=== PATIENT | male | born 1960 | race Caucasian/White ===

== ENCOUNTER → 2018-01-04 | Outpatient (CLI) | payer OTHER ==
[~2018-01-04] MED LIST: CLARITIN10 MG; CRESTOR10 MG PO; FELODIPINE ER10 MG PO; LOSARTAN POTAS100 MG PO; PROZAC20 MG PO
[2018-01-04 09:45] LABS: ABSOLUTE BASOPHILS 0.1 thou/uL (0.0-0.2); ABSOLUTE EOSINOPHILS 0.1 thou/uL (0.0-0.7); ABSOLUTE MONOCYTES 0.5 thou/uL (0.0-1.2); ABSOLUTE NEUTROPHILS 6.5 thou/uL (1.6-8.1); BASOPHILS 0.6 %; EOSINOPHILS 1.1 %; HEMATOCRIT 41.8 % (42.0-52.0); HEMOGLOBIN 14.1 gm/dL (14.0-18.0); LYMPHOCYTES 21.9 %; MCH 30.2 pg (26.0-34.0); MCHC 33.7 g/dL (28.0-37.0); MCV 89.7 fL (80.0-100.0); MONOCYTES 5.7 %; MPV 8.4 fl. (7.2-11.1); NUCLEATED RBCS 0 /100WBC; PLATELET COUNT* 279 thou/uL (150-400); POLYS 70.7 %; RBC 4.67 mil/uL (4.50-6.00); WBC 9.1 thou/uL (4.0-11.0)
[2018-01-04 10:03] LABS: ALBUMIN 3.9 g/dL (3.4-5.0); ALKALINE PHOSPHATASE 71 U/L (46-116); ANION GAP 8 mmol/L (7-16); BUN 16 mg/dL (7-18); CALCIUM 8.9 mg/dL (8.5-10.1); CHLORIDE 101 mmol/L (98-107); CHOLESTEROL 171 mg/dL (<200); CO2 27 mmol/L (21-32); CREATININE 1.1 mg/dL (0.6-1.3); GLUCOSE 109 mg/dL (70-99); HDL CHOLESTEROL 58 mg/dL (>40); LDL CHOLESTEROL 103 mg/dL (<100); POTASSIUM 3.5 mmol/L (3.5-5.1); SGOT 20 U/L (15-37); SGPT 43 U/L (30-65); SODIUM 136 mmol/L (136-145); TC:HDL 2.9 Ratio (Not establshd); TOTAL BILIRUBIN 0.4 mg/dL (<0.1-1.0); TRIGLYCERIDE 54 mg/dL (<150); VLDL 11 mg/dL (<40)
[2018-01-04 10:14] LABS: SERUM ASSESSMENT Clear
[2018-01-04 18:09] LABS: TESTOSTERONE 297 ng/dL (264-916)
[2018-01-05 02:08] LABS: GLYCOHEMOGLOBIN (HGB A1C) 6.1 % (4.8-5.6)
[2018-01-06 11:08] LABS: FREE PSA 0.14 ng/mL
== END ==
LOC: M.LAB 09:23
PROVIDERS: Internal Medicine
DX: Z12.5 Encounter for screening for malignant neoplasm of prostate (principal); E78.00 Pure hypercholesterolemia, unspecified; R35.0 Frequency of micturition; R35.1 Nocturia; R53.82 Chronic fatigue, unspecified; R73.09 Other abnormal glucose; Z79.899 Other long term (current) drug therapy

== ENCOUNTER → 2018-05-04 | Outpatient (CLI) | payer OTHER | LOC: M.LAB 04:41 | DX: Z01.812 Encounter for preprocedural laboratory examination (principal) ==

== ENCOUNTER → 2019-01-05 | Outpatient (CLI) | payer OTHER ==
[2019-01-05 09:53] LABS: ABSOLUTE BASOPHILS 0.1 thou/uL (0.0-0.2); ABSOLUTE EOSINOPHILS 0.1 thou/uL (0.0-0.7); ABSOLUTE LYMPHOCYTES 1.9 thou/uL (0.8-5.3); ABSOLUTE MONOCYTES 0.6 thou/uL (0.0-1.2); ABSOLUTE NEUTROPHILS 7.1 thou/uL (1.6-8.1); BASOPHILS 1.2 %; EOSINOPHILS 1.1 %; HEMATOCRIT 39.4 % (42.0-52.0); HEMOGLOBIN 13.6 gm/dL (14.0-18.0); LYMPHOCYTES 19.4 %; MCH 30.7 pg (26.0-34.0); MCHC 34.5 g/dL (28.0-37.0); MONOCYTES 6.1 %; MPV 8.6 fl. (7.2-11.1); NUCLEATED RBCS 0 /100WBC; PLATELET COUNT* 268 thou/uL (150-400); POLYS 72.2 %; RBC 4.43 mil/uL (4.50-6.00); RDW-CV 14.2 % (10.5-14.5); WBC 9.9 thou/uL (4.0-11.0)
[2019-01-05 11:15] LABS: ALKALINE PHOSPHATASE 77 U/L (46-116); ANION GAP 10 mmol/L (7-16); BUN 26 mg/dL (7-18); CALCIUM 9.5 mg/dL (8.5-10.1); CHLORIDE 103 mmol/L (98-107); CHOLESTEROL 184 mg/dL (<200); CO2 27 mmol/L (21-32); CREATININE 1.1 mg/dL (0.6-1.3); GLUCOSE 110 mg/dL (70-99); HDL CHOLESTEROL 52 mg/dL (>40); LDL CHOLESTEROL 118 mg/dL (<100); POTASSIUM 3.9 mmol/L (3.5-5.1); SGOT 23 U/L (15-37); SGPT 61 U/L (30-65); SODIUM 140 mmol/L (136-145); TC:HDL 3.5 Ratio (Not establshd); TOTAL BILIRUBIN 0.5 mg/dL (<0.1-1.0); TOTAL PROTEIN 8.4 g/dL (6.4-8.2); TRIGLYCERIDE 73 mg/dL (<150); VLDL 15 mg/dL (<40)
[2019-01-05 11:17] LABS: SERUM ASSESSMENT Clear
[2019-01-05 22:06] LABS: TESTOSTERONE 295 ng/dL (264-916)
[2019-01-07 23:06] LABS: FREE TESTOSTERONE 5.6 pg/mL (7.2-24.0)
[2019-01-09 10:10] LABS: FREE PSA 0.12 ng/mL
== END ==
LOC: M.LAB 09:27
PROVIDERS: Internal Medicine
DX: Z00.00 Encounter for general adult medical examination without abnormal findings (principal); Z12.5 Encounter for screening for malignant neoplasm of prostate; I10 Essential (primary) hypertension; R35.1 Nocturia; E78.00 Pure hypercholesterolemia, unspecified; E34.9 Endocrine disorder, unspecified; R73.02 Impaired glucose tolerance (oral)

== ENCOUNTER → 2020-01-29 | Outpatient (CLI) | payer OTHER ==
[2020-01-29 09:10] LABS: ABSOLUTE BASOPHILS 0.1 thou/uL (0.0-0.2); ABSOLUTE EOSINOPHILS 0.1 thou/uL (0.0-0.7); ABSOLUTE MONOCYTES 0.5 thou/uL (0.0-1.2); ABSOLUTE NEUTROPHILS 5.8 thou/uL (1.6-8.1); BASOPHILS 0.7 %; EOSINOPHILS 1.2 %; HEMATOCRIT 40.1 % (42.0-52.0); HEMOGLOBIN 13.8 gm/dL (14.0-18.0); MCH 30.6 pg (26.0-34.0); MCHC 34.4 g/dL (28.0-37.0); MONOCYTES 5.9 %; MPV 8.1 fl. (7.2-11.1); NUCLEATED RBCS 0 /100WBC; PLATELET COUNT* 284 thou/uL (150-400); POLYS 68.2 %; RBC 4.51 mil/uL (4.50-6.00); WBC 8.5 thou/uL (4.0-11.0)
[2020-01-29 09:32] LABS: ALBUMIN 3.7 g/dL (3.4-5.0); ALKALINE PHOSPHATASE 75 U/L (46-116); ANION GAP 9 mmol/L (7-16); BUN 19 mg/dL (7-18); CHLORIDE 102 mmol/L (98-107); CHOLESTEROL 198 mg/dL (<200); CO2 27 mmol/L (21-32); GLUCOSE 108 mg/dL (70-99); HDL CHOLESTEROL 54 mg/dL (>40); LDL CHOLESTEROL 129 mg/dL (<100); POTASSIUM 3.8 mmol/L (3.5-5.1); SGOT 24 U/L (15-37); SGPT 58 U/L (30-65); SODIUM 138 mmol/L (136-145); TC:HDL 3.7 Ratio (Not establshd); TOTAL BILIRUBIN 0.5 mg/dL (<0.1-1.0); TOTAL PROTEIN 8.2 g/dL (6.4-8.2); TRIGLYCERIDE 75 mg/dL (<150); VLDL 15 mg/dL (<40)
[2020-01-29 09:33] LABS: SERUM ASSESSMENT Clear
[2020-01-30 02:08] LABS: GLYCOHEMOGLOBIN (HGB A1C) 5.9 % (4.8-5.6)
[2020-01-30 16:07] LABS: FREE PSA 0.14 ng/mL
[2020-01-31 21:06] LABS: FREE TESTOSTERONE 6.8 pg/mL (7.2-24.0)
== END ==
LOC: M.LAB 08:29
PROVIDERS: ATTEND Internal Medicine
DX: Z12.5 Encounter for screening for malignant neoplasm of prostate (principal); Z00.00 Encounter for general adult medical examination without abnormal findings; R73.02 Impaired glucose tolerance (oral); R35.1 Nocturia; E03.8 Other specified hypothyroidism; I10 Essential (primary) hypertension; R53.82 Chronic fatigue, unspecified; E78.00 Pure hypercholesterolemia, unspecified; E34.9 Endocrine disorder, unspecified; Z79.899 Other long term (current) drug therapy

== ENCOUNTER → 2020-12-24 | Outpatient (CLI) | payer OTHER ==
[2020-12-24 10:07] LABS: CHOLESTEROL 153 mg/dL (<200); HDL CHOLESTEROL 53 mg/dL (>40); LDL CHOLESTEROL 87 mg/dL (<100); TC:HDL 2.9 Ratio (Not establshd); TRIGLYCERIDE 69 mg/dL (<150); VLDL 14 mg/dL (<40)
[2020-12-24 10:09] LABS: SERUM ASSESSMENT Clear
== END ==
LOC: M.LAB 08:19
PROVIDERS: ATTEND Family Medicine
DX: E78.5 Hyperlipidemia, unspecified (principal)

== ENCOUNTER → 2021-01-26 | Outpatient (CLI) | payer OTHER ==
[~2021-01-26] MED LIST changes: +APAP W/CODEINE1 TA2 PO; +DICLOFENAC SODI75 MG PO; +LOSARTAN-HCTZ1 EAC3 PO; -PROZAC20 MG PO; +PROZAC40 MG PO; +ZANAFLEX2 M1 PO
== END ==
LOC: M.PC 09:05
PROVIDERS: ATTEND Physical Medicine & Rehabilitation
DX: M47.816 Spondylosis without myelopathy or radiculopathy, lumbar region (principal); M51.26 Other intervertebral disc displacement, lumbar region; M48.061 Spinal stenosis, lumbar region without neurogenic claudication; M79.669 Pain in unspecified lower leg

== ENCOUNTER → 2021-01-27 | Outpatient (CLI) | payer OTHER | LOC: M.CT 07:36 | PROVIDERS: ATTEND Family Medicine | DX: Z13.6 Encounter for screening for cardiovascular disorders (principal); I25.10 Atherosclerotic heart disease of native coronary artery without angina pectoris ==

== ENCOUNTER → 2021-02-19 | Outpatient (CLI) | payer OTHER ==
--- NOTE | 2021-02-19 12:50 | CARDNUC ---
[place] [address] CARDIAC NUCLEAR IMAGING REPORT Name: CHERYL HAYNES Room: [facility]#: [id number] Admission: 02/19/21 Attend Phys: Sekou Ferris, Discharge: Date of : 60 Date of Service: 02/19/21 1250 Report #: [id number] THIS REPORT FOR: cc: Alin Melo Vincent R. DO Liston, Michael J. MD [facility] ~ APPROVED REPORT Imaging Protocol: Stress Tc-99m/Rest Tc-99m 1 day Study performed: 02/19/2021 08:50:15 Indication: Elevated corornary calcium score Patient Location: Out-Patient Stress Nurse: CECE Hankins Tech:GILBERT Manriquez Ht: 5 ft 11 in Wt: 243 lbs BSA: 2.29 m2 BMI: 33.88 Medical History Medical History: Increased CT coronary calcium score, SIFUENTES, TOMASZ, obesity, HTN, HLD, past smoker, FHX CAD, back pain. Medications: Felodipine, Repatha, Losartan-HCTZ. Allergies: Statins, Zetia, Lisinopril, [place] (Fraxinus) Cardiac Risk Factors: Age, FHX of CAD, HTN, Hyperlipidemia, SOB, Past Smoker, Obesity, elevated CT coronary calcium score. Previous Cardiac Procedures: None Exercise History: Physically active Physical Disabilities: Back Meds Held (24 hrs): Felodipine, Losartan-HCTZ, Repatha. Resting Data Rest SPECT myocardial perfusion imaging was performed in supine position 30 minutes following the intravenous injection of 9.7 mCi of Tc-99m Sestamibi. Time of rest injection: 07:50 The images were gated to evaluate regional wall motion and calculate left ventricular ejection fraction. Administration Route: IV Administration Site: Right Hand Pharmacologic Stress Pharmacologic stress test was performed by injecting Regadenoson 0.4 mg IV push over 10-15 seconds immediately [place] [address] CARDIAC NUCLEAR IMAGING REPORT Name: CHERYL HAYNES Room: [facility]#: [id number] Admission: 02/19/21 Attend Phys: Sekou Ferris, Discharge: Date of : 60 Date of Service: 02/19/21 1250 Report #: [id number] injection of 34.2 mCi of Tc-99m Sestamibi. Time of stress injection: 09:00 Administration Route: IV Administration Site: Right Hand Heart Rate at time of stress injection: 97 bpm. Gated Stress SPECT was performed 45 minutes after stress injection. The images were gated to evaluate regional wall motion and calculate left ventricular ejection fraction. Prone imaging was performed. Stress Test Details Stress Test: Pharmacologic stress testing performed using 0.4 mg of regadenoson per 5 mL given IV over 10 seconds. Reason for pharmacologic stress test: Back pain with unsteady gait.. HR Max Heart Rate (APMHR): 160 bpm Resting HR: 73 bpm Target HR (85% APMHR): 136 bpm Max HR Achieved: 97 bpm % of APMHR: 60 Recovery HR: 85 bpm BP Resting BP: 144/73 mmHg Max BP: 102/66 mmHg Recovery BP: 143/89 mmHg ECG Resting ECG: Sinus Rhythm Stress ECG: Sinus Rhythm ST Change: None Arrhythmia: None Recovery ECG: Sinus Rhythm Recovery ST Change: None Recovery Arrhythmia: None Clinical Reason for Termination: Completed protocol Stress Symptoms: Dyspnea Exercise duration: 00 min 00 sec Exercise capacity: 1.00 METs The patient tolerated Lexiscan infusion without significant cardiac complaint. Nurse Comments Patient tolerated a sitting Lexiscan. [place] [address] CARDIAC NUCLEAR IMAGING REPORT Name: CHERYL HAYNES Room: [facility]#: [id number] Admission: 02/19/21 Attend Phys: Sekou Ferris, Discharge: Date of : 60 Date of Service: 02/19/21 1250 Report #: [id number] when escorted to Nuclear Medicine for imaging. Patient did not take any morning medications. Stress ECG Conclusion The baseline twelve-lead EKG shows sinus rhythm with subtle ST segment depression in the inferolateral leads. EKGs obtained during and post Lexiscan stress show sinus rhythm with no significant ST segment changes when compared to baseline. There were no stress-induced arrhythmias. Study Quality Study: Good Artifact: Mild Diaphragmatic artifact Study Data At rest, the left ventricular ejection fraction was 62%.. Post stress, the left ventricular ejection was 58%.. TID = 1.06. Perfusion Perfusion images obtained at rest and post Lexiscan stress show mild photopenia in the basal portion of the inferior wall. Wall motion in this region is normal on gated studies consistent with diaphragmatic attenuation artifact. No other significant fixed or reversible defects are identified. Wall Motion Normal left ventricular wall motion. Nuclear Conclusion ECG Findings: negative for ischemia Clinical Findings: negative for ischemia Nuclear Findings: negative for ischemia Exercise Capacity: not assessed Left Ventricular Function: normal Risk Study: low Perfusion images show no defect to suggest infarct or ischemia. Left-ventricular systolic function appears normal on gated studies. This is a low risk study. <Conclusion> The baseline twelve-lead EKG shows sinus rhythm with subtle ST segment depression in the inferolateral leads. EKGs obtained during and post Lexiscan stress show sinus rhythm with no [place] [address] CARDIAC NUCLEAR IMAGING REPORT Name: DALLASCHERYL Room: [facility]#: [id number] Admission: 02/19/21 Attend Phys: Sekou Ferris, Discharge: Date of : 60 Date of Service: 02/19/21 1250 Report #: [id number] segment changes when compared to baseline. There were no stress-induced arrhythmias. <ELECTRONICALLY SIGNED> By: Sekou Ferris MD, FACC 02/19/21 1250 49 Sekou Ferris MD, FACC /INF
== END ==
LOC: M.CRD 02-18 08:00 → M.NUC 02-18 08:00
PROVIDERS: ATTEND Internal Medicine Cardiovascular Disease
DX: I25.10 Atherosclerotic heart disease of native coronary artery without angina pectoris (principal)